=== PATIENT | male | born 1980 ===

== ENCOUNTER 2021-03-13 14:31 | Emergency (ER) | payer OTHER ==
[2021-03-13] MEDS ORDERED: Ketorolac 60 MG/2 ML SDV IM ONE (15:00)
== END 2021-03-13 16:20 | disposition home or self-care (01) ==
LOC: LB.ED 14:31
DX: S20.221A Contusion of right back wall of thorax, initial encounter (principal); E78.00 Pure hypercholesterolemia, unspecified; E11.9 Type 2 diabetes mellitus without complications; Z79.82 Long term (current) use of aspirin; Z79.899 Other long term (current) drug therapy; Z79.84 Long term (current) use of oral hypoglycemic drugs; W18.30XA Fall on same level, unspecified, initial encounter
CPT/HCPCS: 71110; 96372; 99283; J1885